=== PATIENT | male | born 1955 | race Caucasian/White ===

== ENCOUNTER 2018-10-17 09:20 | Emergency (ER) | payer OTHER ==
[~2018-10-17] VITALS: Ht 190.5 cm; Wt 110.0 kg
[2018-10-17 12:49] VITALS: BP 135/77
== END 2018-10-17 14:48 | disposition home or self-care (01) ==
LOC: ED 12:34
DX: E11.649 Type 2 diabetes mellitus with hypoglycemia without coma (principal); Z86.718 Personal history of other venous thrombosis and embolism
CPT/HCPCS: 36415; 71045; 80048; 81001; 82040; 82962; 85025; 87077; 87086; 87186; 93005; 99284

== ENCOUNTER 2019-05-07 13:02 | Emergency (ER) | payer OTHER ==
[~2019-05-07] VITALS: Ht 190.5 cm; Wt 114.0 kg
[~2019-05-07 13:02] MED LIST: ATOR20TA37 PO; CHOL2000 PO; CYAN100072 PO; DOCU240C53 PO; FOLI0.4T2 PO; INSU100V13 SQ; LAMO100T5 PO; MAGN400T26 PO; METO25TA35 PO; TAMS-11 PO; WARF4TAB PO; WARF5TAB PO
[2019-05-07 13:54] LABS: BASOPHILS # (AUTO) 0.02 x10^3/uL (0-0.1); BASOPHILS % (AUTO) 0 % (0-1); EOSINOPHILS % (AUTO) 3 % (1-7); LYMPHOCYTES # (AUTO) 1.14 x10^3/uL (1-3.4); LYMPHOCYTES % (AUTO) 16 % (22-44); MD NO; MEAN CORPUSCULAR HEMOGLOBIN 30.7 pg (27.5-34.5); MEAN CORPUSCULAR HGB CONC 32.8 g/dL (33.2-36.2); MEAN CORPUSCULAR VOLUME 93.6 fL (81-97); MEAN PLATELET VOLUME 8.8 fL (7.4-10.4); MONOCYTES # (AUTO) 0.56 x10^3/uL (0.2-0.8); MONOCYTES % (AUTO) 8 % (2-9); NEUTROPHILS # (AUTO) 5.22 x10^3/uL (1.8-6.8); NEUTROPHILS % (AUTO) 73 % (42-75); PLATELET COUNT 215 x10^3/uL (130-400); RED BLOOD COUNT 4.35 x10^6/uL (4.38-5.82); RED CELL DISTRIBUTION WIDTH 14.3 % (9.4-14.8)
[2019-05-07 14:07] LABS: ALANINE AMINOTRANSFERASE 21 U/L (12-78); ALBUMIN 3.1 g/dL (3.4-5.0); ANION GAP 5 mmol/L (5-15); CALCIUM 8.3 mg/dL (8.5-10.1); CHLORIDE 102 mmol/L (98-107); CREATININE 0.91 mg/dL (0.7-1.3)
[2019-05-07 14:09] LABS: ALKALINE PHOSPHATASE 91 U/L (45-117); BILIRUBIN,TOTAL 0.4 mg/dL (0.2-1.0); TOTAL PROTEIN 7.1 g/dL (6.4-8.2)
--- NOTE | 2019-05-07 14:10 | NUR ---
REPORT RECEIVED FROM JELENA PAREDES. PT IS A&OX4, LEFT GRASP AND LEFT LEG WEAKER THAN RIGHT WITH THIS RN'S INITIAL ASSESSMENT, FACE SYMMETRICAL. PT LEANING TO RIGHT. PT STATES LEFT SIDED WEAKNESS IS NOT BASELINE, BUT BODY LEAN TO RIGHT SIDE IS. CELSO PHAN NOTIFIED. PER EMS AND JELENA PAREDES, PT LIVES ALONE BUT WAS FOUND BY PT THIS PM TO HAVE LOW BG. UNKNOWN LAST WELL TIME. PT IN CT AT THIS TIME.
[2019-05-07 14:18] LABS: INTERNATIONAL NORMALIZED RATIO 1.38 (0.93-1.1)
[2019-05-07 14:20] LABS: PROTHROMBIN TIME 14.7 Seconds (9.6-11.5)
--- NOTE | 2019-05-07 14:43 | NUR ---
PT EXAMINED BY ALEX LOMAX MD INSTRUCTED RN TO ORDER MEAL TRAY. MEAL TRAY ORDERED. EDT AT BEDSIDE FOR EKG.
[2019-05-07 15:01] LABS: MICROSCOPIC NOT IND
[2019-05-07 15:06] LABS: CULTURE INDICATED? NO
--- NOTE | 2019-05-07 15:26 | NUR ---
report given to RN Marisol at bedside. pt a&o, resps even and unlabored, no complaint at this time.
--- NOTE | 2019-05-07 15:30 | NUR ---
REPORT RECEIVED, CARE ASSUMED. PT RESTING QUIETLY, EATING MEAL TRAY AT THIS TIME. PT DENIES ADDITIONAL NEEDS.
[2019-05-07 17:10] VITALS: BP 138/78
--- NOTE | 2019-05-07 17:10 | NUR ---
PT AWAKE, INTERACTING WITH BROTHER AND IN NO DISTRESS. ASSISTED INTO W/C AND TO DISCHARGE WINDOW.
== END 2019-05-07 17:12 | disposition home or self-care (01) ==
LOC: ED 17:05
DX: E11.649 Type 2 diabetes mellitus with hypoglycemia without coma (principal); I25.2 Old myocardial infarction; Z86.718 Personal history of other venous thrombosis and embolism
CPT/HCPCS: 36415; 70450; 80053; 81003; 82962; 85025; 85610; 93005; 99285